=== PATIENT | female | born 1955 | race Caucasian/White ===

== ENCOUNTER 2018-11-15 09:35 | Emergency (ER) | payer OTHER ==
[2018-11-15] MEDS: METHYLPREDNISOLONE 125 MG INJ IM ×2 (11:39→11:59)
[2018-11-15] MEDS: ALBUTEROL 0.083% (NEB) 2.5 MG/3 ML AMP NEB (11:44)
[2018-11-15] MEDS: IPRATROPIUM (NEB) 0.5 MG/2.5 ML AMP NEB (11:45)
[2018-11-15 13:38] LABS: MONOTEST Negative (NEG)
== END 2018-11-15 14:00 | disposition home or self-care (01) ==
LOC: FTE 14:00
DX: J40 Bronchitis, not specified as acute or chronic (principal); I25.2 Old myocardial infarction; H61.21 Impacted cerumen, right ear; Z79.01 Long term (current) use of anticoagulants; Z79.82 Long term (current) use of aspirin; Z95.1 Presence of aortocoronary bypass graft
CPT/HCPCS: 71045; 86308; 87880; 94664; 96372; 99284-25

== ENCOUNTER 2018-11-24 21:05 | Emergency (ER) | payer OTHER ==
[2018-11-24] MEDS ORDERED: KETOROLAC 30 MG INJ IV (23:29)
[2018-11-25] MEDS: SOD CHLORIDE 0.9% 1,000 ML IV (00:01)
[2018-11-25] MEDS: IBUPROFEN 800 MG TAB PO (00:01)
== END 2018-11-25 02:30 | disposition home or self-care (01) ==
LOC: E/R 11-25 02:30
DX: J01.00 Acute maxillary sinusitis, unspecified (principal); Z79.01 Long term (current) use of anticoagulants; Z79.82 Long term (current) use of aspirin; Z95.1 Presence of aortocoronary bypass graft; Z98.61 Coronary angioplasty status
CPT/HCPCS: 70486; 99285-25